=== PATIENT | male | born 1935 | race Caucasian/White ===

== ENCOUNTER 2020-07-14 19:42 | Emergency (ER) | payer MEDICARE, BC ==
[2020-07-14] MEDS ORDERED: Sodium Bicarb 50 MEQ/50 ML Abboject 8.4% SYRINGE ONE (19:45)
[2020-07-14] MEDS ORDERED: Calcium Chloride 1 GM/10 ML Abboject SYRINGE ONE (19:45)
[2020-07-14] MEDS ORDERED: EPINEPHrine 1 MG/10 ML Abboject SYRINGE ONE (19:45)
== END 2020-07-14 20:13 | disposition expired ==
LOC: ERS 19:42
DX: I46.9 Cardiac arrest, cause unspecified (principal)
CPT/HCPCS: 92950; J0171